=== PATIENT | female | born 1950 | race Caucasian/White ===

== ENCOUNTER 2017-01-22 14:04 | Inpatient (IN) | payer OTHER ==
--- NOTE | 2017-01-22 15:14 | RAD ---
Examination: Chest, PA and lateral views History: Wheezing, SOB Comparison reference: None Findings: The heart is normal in size, the aorta mildly dilated. There is a diffuse interstitial prom inence throughout each lung. No consolidation or pleural fluid is seen. Impression: Bilateral interstitial prominence as described may represent chronic peribronchial thicke gilbert. The findings may also be more acute, related to congestion or inflammation. Clinical correlatio n and follow-up would be helpful to distinguish. Reported By:
[2017-01-22] MEDS ORDERED: TUSSIONEX PENNKINETIC SUSP PO PRN (18:01)
[2017-01-22] MEDS ORDERED: NS 1/2 1000 ML IV 1,000 ML IV ONE (18:08)
[2017-01-22] MEDS ORDERED: TYLENOL 500 MG TAB EXTRA STRENGTH PO PRN (18:10)
[2017-01-22] MEDS ORDERED: SALINE 3% 15 ML NEB TX ONE (18:25)
[2017-01-22] MEDS ORDERED: DUONEB 0.5 MG/3 MG ONE (18:25)
[2017-01-22] MEDS: DUONEB 0.5 MG/3 MG NEB SCH ×2 (18:35→21:04)
[2017-01-22] MEDS ORDERED: SALINE 3% 15 ML NEB TX NEB ONE (18:35)
[2017-01-22 18:43] LABS: BASOPHILS % (AUTO) 0.3 % (0.2-1.0); EOSINOPHILS # (AUTO) 0.1 x10^3/uL (0.0-0.2); EOSINOPHILS % (AUTO) 0.3 % (0.9-2.9); HEMOGLOBIN 14.3 g/dL (12.0-16.0); LYMPHOCYTES % (AUTO) 5.5 % (21.0-51.0); MEAN CORPUSCULAR VOLUME 85.6 fL (80.0-100.0); MONOCYTES # (AUTO) 0.6 x10^3/uL (0.3-0.8); MONOCYTES % (AUTO) 3.2 % (0.0-13.0); NEUTROPHILS # (AUTO) 16.3 x10^3/uL (2.2-4.8); NEUTROPHILS % (AUTO) 90.7 % (42.0-75.0); PLATELET COUNT 340 X10^3/uL (150.0-450.0); RED BLOOD COUNT 4.78 X10^6/uL (3.5-5.4); RED CELL DISTRIBUTION WIDTH 14.7 % (11.6-16.5); WHITE BLOOD COUNT 17.9 X10^3/uL (3.6-10.0)
[2017-01-22] MEDS: ZITHROMAX INJ 500 MG VIAL 500 MG in D5W 250 ML IV 250 ML IV SCH (18:50)
[2017-01-22 18:52] LABS: ALANINE AMINOTRANSFERASE 27 Units/L (12-78); ALBUMIN 3.3 g/dL (3.4-5.0); ALKALINE PHOSPHATASE 78 Units/L (46-116); ASPARTATE AMINO TRANSFERASE 19 Units/L (15-37); BLOOD UREA NITROGEN 17 mg/dL (7-18); CALCIUM 8.6 mg/dL (8.5-10.1); CARBON DIOXIDE 25.8 mmol/L (21-32); CHLORIDE 99 mmol/L (98-107); COR CA(FOR HYPOALB) 9.2 mg/dL (8.5-10.1); COR NA(FOR HYPERGLY) 137 mmol/L (136-145); CREATININE 0.86 mg/dL (0.55-1.02); SODIUM 136 mmol/L (136-145); TOTAL PROTEIN 6.8 g/dL (6.4-8.2); eGFR BLACK RACES > 60 (>60); eGFR NON BLACK RACES > 60 (>60)
[2017-01-22 18:56] LABS: BAND NEUTROPHILS % 5 % (0-10); PLATELET MORPHOLOGY COMMENT NORMAL (NORMAL)
[2017-01-22] MEDS: NS 1/2 1000 ML IV 1,000 ML IV SCH (19:12)
[2017-01-22] MEDS ORDERED: K-RIDER 10 MEQ/NS 100 ML 10 MEQ/100 ML BAG IV PRN (19:13)
[2017-01-22] MEDS ORDERED: MAGNESIUM SULFATE 1 GM/100 mL PREMIX 1 GM/100 ML BAG IV PRN (19:13)
[2017-01-22] MEDS ORDERED: POTASSIUM CHLORIDE LIQ 20 MEQ UDC PO PRN (19:13)
[2017-01-22] MEDS ORDERED: MAG-OX TAB PO PRN (19:13)
[2017-01-22] MEDS: ROBITUSSIN DM PO SCH (20:20)
[2017-01-22] MEDS: MAXIPIME 1 GM IV PREMIX 1 GM/50 ML BAG IV SCH (20:20)
[2017-01-22] MEDS: POTASSIUM CHL 60 MEQ/NS 0.45% 500 ML IV PRN (20:21)
[2017-01-22 20:54] LABS: BILIRUBIN,URINE NEGATIVE (NEGATIVE); BLOOD/HEMOGLOBIN,URINE NEGATIVE (NEGATIVE); GLUCOSE, URINE NEGATIVE (NEGATIVE); KETONES,URINE NEGATIVE (NEGATIVE); LEUKOCYTE ESTERASE ,URINE 1+ (NEGATIVE); NITRITES,URINE NEGATIVE (NEGATIVE); PROTEIN,URINE NEGATIVE (NEGATIVE); UROBILINOGEN,URINE NORMAL (NORMAL)
[2017-01-22] MEDS ORDERED: MAXIPIME VIAL 1 GM IV SCH (21:00)
[2017-01-22 21:03] LABS: APPEARANCE,URINE CLEAR (CLEAR); BACTERIA,URINE TRACE /HPF (NEGATIVE); COLOR,URINE YELLOW (YELLOW); RBC,URINE 0-3 /HPF (NEGATIVE); SQUAMOUS EPITHELIAL CELL,UR RARE /HPF (NEGATIVE)
[2017-01-23] MEDS: DUONEB 0.5 MG/3 MG NEB SCH ×3 (00:25→09:53)
[2017-01-23 05:30] LABS: BASOPHILS # (AUTO) 0.1 X10^3/uL (0.0-0.1); BASOPHILS % (AUTO) 0.7 % (0.2-1.0); HEMATOCRIT 36.9 % (36.0-47.0); HEMOGLOBIN 12.8 g/dL (12.0-16.0); LYMPHOCYTES # (AUTO) 0.9 X10^3/uL (1.3-2.9); LYMPHOCYTES % (AUTO) 6.8 % (21.0-51.0); MEAN CORPUSCULAR HEMOGLOBIN 29.7 pg (27.0-34.0); MEAN CORPUSCULAR HGB CONC 34.8 g/dL (33.0-35.0); MEAN CORPUSCULAR VOLUME 85.5 fL (80.0-100.0); MEAN PLATELET VOLUME 8.5 fL (7.4-11.0); MONOCYTES # (AUTO) 0.8 x10^3/uL (0.3-0.8); NEUTROPHILS # (AUTO) 11.5 x10^3/uL (2.2-4.8); NEUTROPHILS % (AUTO) 86.5 % (42.0-75.0); PLATELET COUNT 311 X10^3/uL (150.0-450.0); RED BLOOD COUNT 4.32 X10^6/uL (3.5-5.4); RED CELL DISTRIBUTION WIDTH 14.6 % (11.6-16.5); WHITE BLOOD COUNT 13.3 X10^3/uL (3.6-10.0)
[2017-01-23 05:58] LABS: ALANINE AMINOTRANSFERASE 26 Units/L (12-78); ALBUMIN 2.8 g/dL (3.4-5.0); ALKALINE PHOSPHATASE 69 Units/L (46-116); ASPARTATE AMINO TRANSFERASE 17 Units/L (15-37); BLOOD UREA NITROGEN 12 mg/dL (7-18); CALCIUM 7.8 mg/dL (8.5-10.1); CARBON DIOXIDE 24.3 mmol/L (21-32); CHLORIDE 103 mmol/L (98-107); COR CA(FOR HYPOALB) 8.8 mg/dL (8.5-10.1); COR NA(FOR HYPERGLY) 141 mmol/L (136-145); CREATININE 0.85 mg/dL (0.55-1.02); SODIUM 139 mmol/L (136-145); eGFR BLACK RACES > 60 (>60); eGFR NON BLACK RACES > 60 (>60)
--- NOTE | 2017-01-23 06:44 | RAD ---
History: Shortness of breath Study: Portable AP trans Comparison: Yesterday Findings: There is limited inspiration compared to yesterday's exam. There is chronic mild interstiti al lung disease. The heart size is normal. There is no pleural effusion. Impression: Limited inspiration and unchanged mild chronic interstitial lung disease Reported By:
[2017-01-23] MEDS: ROBITUSSIN DM PO SCH ×4 (08:35→22:40)
[2017-01-23] MEDS: MAXIPIME 1 GM IV PREMIX 1 GM/50 ML BAG IV SCH ×2 (08:35→22:40)
[2017-01-23] MEDS: ZITHROMAX INJ 500 MG VIAL 500 MG in D5W 250 ML IV 250 ML IV SCH (08:35)
[2017-01-23] MEDS ORDERED: XOPENEX 1.25 MG/3 ML NEBULE NEB ONE (09:25)
[2017-01-23] MEDS: XOPENEX 1.25 MG/3 ML NEBULE NEB SCH ×3 (09:53→21:30)
--- NOTE | 2017-01-23 10:16 | CT ---
History: Cough and shortness of breath Study: CTA chest with 100 mL Omnipaque 350. Sagittal and coronal MIPS of the pulmonary arteries were displayed. Findings: The left lobe of the thyroid gland is enlarged and extends into the anterior superior media stinum with coarse calcification and hypo attenuating nodules. There are diffusely increased interstitial lung markings peripherally. There is no focal lung consoli dation and there is no pleural effusion and there is no pulmonary mass. The visualized upper abdomen is unremarkable. The main pulmonary artery measures 3.55 cm diameter. The right main pulmonary artery is also dilated. The aorta is unremarkable. No pulmonary embolus is demonstrated. Impression: 1. No evidence for pulmonary embolus 2. Left thyroid goiter 3. Peripheral interstitial lung disease status likely chronic, no definite acute cardiopulmonary dise ase. Reported By:
[2017-01-23] MEDS: DIFLUCAN 200 MG IV PREMIX* 200 MG/100 ML BAG IV SCH (14:32)
[2017-01-23] MEDS ORDERED: NS 1/2 1000 ML IV 1,000 ML IV ONE (17:31)
[2017-01-23] MEDS: NS 1/2 1000 ML IV 1,000 ML IV SCH (17:34)
[2017-01-23] MEDS: ELIQUIS PO SCH (22:41)
[2017-01-23] MEDS: PATIENT'S HOME MEDICATION PO SCH (22:41)
[2017-01-24] MEDS: XOPENEX 1.25 MG/3 ML NEBULE NEB SCH ×3 (05:11→20:28)
[2017-01-24] MEDS ORDERED: NS 1/2 1000 ML IV 1,000 ML IV ONE (06:25)
[2017-01-24 06:29] LABS: BASOPHILS # (AUTO) 0.1 X10^3/uL (0.0-0.1); BASOPHILS % (AUTO) 0.8 % (0.2-1.0); EOSINOPHILS # (AUTO) 0.1 x10^3/uL (0.0-0.2); EOSINOPHILS % (AUTO) 0.6 % (0.9-2.9); HEMATOCRIT 36.6 % (36.0-47.0); HEMOGLOBIN 12.6 g/dL (12.0-16.0); LYMPHOCYTES # (AUTO) 2.3 X10^3/uL (1.3-2.9); LYMPHOCYTES % (AUTO) 21.9 % (21.0-51.0); MEAN CORPUSCULAR HEMOGLOBIN 29.8 pg (27.0-34.0); MEAN CORPUSCULAR HGB CONC 34.6 g/dL (33.0-35.0); MEAN CORPUSCULAR VOLUME 86.2 fL (80.0-100.0); MEAN PLATELET VOLUME 8.8 fL (7.4-11.0); MONOCYTES # (AUTO) 1.1 x10^3/uL (0.3-0.8); MONOCYTES % (AUTO) 10.4 % (0.0-13.0); NEUTROPHILS % (AUTO) 66.3 % (42.0-75.0); PLATELET COUNT 292 X10^3/uL (150.0-450.0); RED BLOOD COUNT 4.24 X10^6/uL (3.5-5.4); RED CELL DISTRIBUTION WIDTH 14.6 % (11.6-16.5); WHITE BLOOD COUNT 10.5 X10^3/uL (3.6-10.0)
[2017-01-24] MEDS: NS 1/2 1000 ML IV 1,000 ML IV SCH (06:31)
[2017-01-24 06:48] LABS: ALANINE AMINOTRANSFERASE 29 Units/L (12-78); ALBUMIN 2.7 g/dL (3.4-5.0); ALKALINE PHOSPHATASE 69 Units/L (46-116); ASPARTATE AMINO TRANSFERASE 18 Units/L (15-37); BLOOD UREA NITROGEN 10 mg/dL (7-18); CALCIUM 7.7 mg/dL (8.5-10.1); CARBON DIOXIDE 28.5 mmol/L (21-32); CHLORIDE 105 mmol/L (98-107); COR CA(FOR HYPOALB) 8.7 mg/dL (8.5-10.1); CREATININE 0.77 mg/dL (0.55-1.02); SODIUM 142 mmol/L (136-145); TOTAL PROTEIN 5.7 g/dL (6.4-8.2); eGFR BLACK RACES > 60 (>60); eGFR NON BLACK RACES > 60 (>60)
[2017-01-24] MEDS: MAXIPIME 1 GM IV PREMIX 1 GM/50 ML BAG IV SCH ×2 (08:39→21:54)
[2017-01-24] MEDS: ZITHROMAX INJ 500 MG VIAL 500 MG in D5W 250 ML IV 250 ML IV SCH (08:39)
[2017-01-24] MEDS: CHLORTHALIDONE PO SCH (08:39)
[2017-01-24] MEDS: DIFLUCAN 200 MG IV PREMIX* 200 MG/100 ML BAG IV SCH (08:39)
[2017-01-24] MEDS: ELIQUIS PO SCH ×2 (08:39→21:55)
[2017-01-24] MEDS: ROBITUSSIN DM PO SCH ×4 (08:40→21:55)
[2017-01-24] MEDS: PATIENT'S HOME MEDICATION PO SCH ×2 (08:41→21:58)
[2017-01-24] MEDS ORDERED: ELIQUIS PO SCH (09:00)
[2017-01-24] MEDS ORDERED: PROPAFENONE HCL PO SCH (09:00)
[2017-01-24] MEDS ORDERED: CHLORTHALIDONE PO SCH (09:00)
[2017-01-24] MEDS: POTASSIUM CHL 60 MEQ/NS 0.45% 500 ML IV PRN (10:28)
[2017-01-24] MEDS: PHENERGAN TAB 25 MG PO SCH ×2 (16:35→21:54)
[2017-01-24 22:38] VITALS: BMI 29.9
[2017-01-25] MEDS ORDERED: NS 1/2 1000 ML IV 1,000 ML IV ONE (01:49)
[2017-01-25] MEDS: NS 1/2 1000 ML IV 1,000 ML IV SCH (02:17)
[2017-01-25] MEDS: XOPENEX 1.25 MG/3 ML NEBULE NEB SCH ×4 (04:54→20:33)
[2017-01-25 05:40] LABS: BASOPHILS # (AUTO) 0.1 X10^3/uL (0.0-0.1); BASOPHILS % (AUTO) 0.8 % (0.2-1.0); EOSINOPHILS # (AUTO) 0.2 x10^3/uL (0.0-0.2); EOSINOPHILS % (AUTO) 2.1 % (0.9-2.9); HEMATOCRIT 36.7 % (36.0-47.0); HEMOGLOBIN 12.7 g/dL (12.0-16.0); LYMPHOCYTES # (AUTO) 2.6 X10^3/uL (1.3-2.9); LYMPHOCYTES % (AUTO) 25.9 % (21.0-51.0); MEAN CORPUSCULAR HEMOGLOBIN 30.1 pg (27.0-34.0); MEAN CORPUSCULAR HGB CONC 34.7 g/dL (33.0-35.0); MEAN CORPUSCULAR VOLUME 86.8 fL (80.0-100.0); MEAN PLATELET VOLUME 8.7 fL (7.4-11.0); MONOCYTES # (AUTO) 1.3 x10^3/uL (0.3-0.8); MONOCYTES % (AUTO) 12.4 % (0.0-13.0); NEUTROPHILS # (AUTO) 5.9 x10^3/uL (2.2-4.8); NEUTROPHILS % (AUTO) 58.8 % (42.0-75.0); PLATELET COUNT 293 X10^3/uL (150.0-450.0); RED BLOOD COUNT 4.23 X10^6/uL (3.5-5.4); RED CELL DISTRIBUTION WIDTH 14.8 % (11.6-16.5); WHITE BLOOD COUNT 10.1 X10^3/uL (3.6-10.0)
[2017-01-25 06:50] LABS: ALANINE AMINOTRANSFERASE 38 Units/L (12-78); ALBUMIN 2.7 g/dL (3.4-5.0); ALKALINE PHOSPHATASE 65 Units/L (46-116); ASPARTATE AMINO TRANSFERASE 20 Units/L (15-37); BLOOD UREA NITROGEN 11 mg/dL (7-18); CALCIUM 7.7 mg/dL (8.5-10.1); CARBON DIOXIDE 27.9 mmol/L (21-32); CHLORIDE 105 mmol/L (98-107); COR CA(FOR HYPOALB) 8.7 mg/dL (8.5-10.1); CREATININE 0.74 mg/dL (0.55-1.02); SODIUM 141 mmol/L (136-145); TOTAL PROTEIN 5.6 g/dL (6.4-8.2); eGFR BLACK RACES > 60 (>60); eGFR NON BLACK RACES > 60 (>60)
[2017-01-25] MEDS: K-LYTE EFFERVESCENT PO PRN ×2 (08:13→08:14)
[2017-01-25] MEDS: MAXIPIME 1 GM IV PREMIX 1 GM/50 ML BAG IV SCH ×2 (08:35→21:47)
[2017-01-25] MEDS: DIFLUCAN 200 MG IV PREMIX* 200 MG/100 ML BAG IV SCH (08:35)
[2017-01-25] MEDS: CHLORTHALIDONE PO SCH (08:35)
[2017-01-25] MEDS: ELIQUIS PO SCH ×2 (08:35→21:49)
[2017-01-25] MEDS: ZITHROMAX INJ 500 MG VIAL 500 MG in D5W 250 ML IV 250 ML IV SCH (08:36)
[2017-01-25] MEDS: ROBITUSSIN DM PO SCH ×4 (08:36→21:49)
[2017-01-25] MEDS: PHENERGAN TAB 25 MG PO SCH ×4 (08:36→21:48)
[2017-01-25] MEDS: PATIENT'S HOME MEDICATION PO SCH ×2 (08:36→21:48)
[2017-01-25] MEDS: SOLU-Medrol 40 MG VIAL IVP SCH (16:56)
[2017-01-26] MEDS: SOLU-Medrol 40 MG VIAL IVP SCH ×4 (00:06→21:55)
[2017-01-26] MEDS ORDERED: NS 1/2 1000 ML IV 1,000 ML IV ONE (00:10)
[2017-01-26] MEDS: NS 1/2 1000 ML IV 1,000 ML IV SCH ×2 (00:20→21:59)
[2017-01-26 04:55] LABS: BASOPHILS # (AUTO) 0.1 X10^3/uL (0.0-0.1); BASOPHILS % (AUTO) 0.6 % (0.2-1.0); EOSINOPHILS % (AUTO) 0.1 % (0.9-2.9); HEMATOCRIT 39.5 % (36.0-47.0); HEMOGLOBIN 13.8 g/dL (12.0-16.0); LYMPHOCYTES # (AUTO) 0.9 X10^3/uL (1.3-2.9); LYMPHOCYTES % (AUTO) 8.5 % (21.0-51.0); MEAN CORPUSCULAR HEMOGLOBIN 30.2 pg (27.0-34.0); MEAN CORPUSCULAR HGB CONC 34.9 g/dL (33.0-35.0); MEAN CORPUSCULAR VOLUME 86.5 fL (80.0-100.0); MEAN PLATELET VOLUME 8.4 fL (7.4-11.0); MONOCYTES # (AUTO) 0.4 x10^3/uL (0.3-0.8); MONOCYTES % (AUTO) 4.4 % (0.0-13.0); NEUTROPHILS # (AUTO) 8.8 x10^3/uL (2.2-4.8); NEUTROPHILS % (AUTO) 86.4 % (42.0-75.0); PLATELET COUNT 339 X10^3/uL (150.0-450.0); RED BLOOD COUNT 4.57 X10^6/uL (3.5-5.4); RED CELL DISTRIBUTION WIDTH 14.6 % (11.6-16.5); WHITE BLOOD COUNT 10.1 X10^3/uL (3.6-10.0)
[2017-01-26] MEDS: XOPENEX 1.25 MG/3 ML NEBULE NEB SCH ×3 (05:22→20:06)
[2017-01-26 06:35] LABS: ALANINE AMINOTRANSFERASE 34 Units/L (12-78); ALBUMIN 2.9 g/dL (3.4-5.0); ALKALINE PHOSPHATASE 73 Units/L (46-116); ASPARTATE AMINO TRANSFERASE 18 Units/L (15-37); BLOOD UREA NITROGEN 15 mg/dL (7-18); CALCIUM 8.4 mg/dL (8.5-10.1); CARBON DIOXIDE 27.1 mmol/L (21-32); CHLORIDE 104 mmol/L (98-107); COR CA(FOR HYPOALB) 9.3 mg/dL (8.5-10.1); COR NA(FOR HYPERGLY) 139 mmol/L (136-145); CREATININE 0.81 mg/dL (0.55-1.02); SODIUM 138 mmol/L (136-145); TOTAL PROTEIN 6.4 g/dL (6.4-8.2); eGFR BLACK RACES > 60 (>60); eGFR NON BLACK RACES > 60 (>60)
--- NOTE | 2017-01-26 07:45 | RAD ---
Examination: Chest, PA and lateral views History: Cough and SOB Comparison reference 01/23/2017 Findings: Continued normal heart size with dilated aorta. Central vascular congestion and diffuse int erstitial prominence bilaterally. Improved aeration of the lungs since prior study. Impression: Improved pulmonary volumes with persistent vascular congestion. Bilateral interstitial pr ocess may be at least in part chronic. Reported By:
[2017-01-26] MEDS: CHLORTHALIDONE PO SCH (09:16)
[2017-01-26] MEDS: ROBITUSSIN DM PO SCH ×4 (09:16→21:55)
[2017-01-26] MEDS: MAXIPIME 1 GM IV PREMIX 1 GM/50 ML BAG IV SCH ×2 (09:16→21:59)
[2017-01-26] MEDS: ZITHROMAX INJ 500 MG VIAL 500 MG in D5W 250 ML IV 250 ML IV SCH (09:16)
[2017-01-26] MEDS: PHENERGAN TAB 25 MG PO SCH ×4 (09:16→21:55)
[2017-01-26] MEDS: ELIQUIS PO SCH ×2 (09:23→21:55)
[2017-01-26] MEDS: PATIENT'S HOME MEDICATION PO SCH ×2 (09:23→21:55)
[2017-01-26] MEDS: MUCOMYST 20% 200 MG/ML NEB SCH ×2 (13:25→20:08)
[2017-01-26] MEDS: K-DUR TAB 20 MEQ PO SCH ×2 (15:57→21:55)
[2017-01-26] MEDS: LASIX IVP SCH ×2 (15:57→21:55)
[2017-01-26] MEDS: PULMICORT NEB TX 0.5 MG NEB SCH ×2 (18:24→20:07)
[2017-01-27] MEDS: XOPENEX 1.25 MG/3 ML NEBULE NEB SCH ×3 (05:10→20:31)
[2017-01-27] MEDS: MUCOMYST 20% 200 MG/ML NEB SCH ×3 (05:11→20:31)
[2017-01-27] MEDS: SOLU-Medrol 40 MG VIAL IVP SCH ×3 (05:39→21:33)
[2017-01-27 05:46] LABS: ALANINE AMINOTRANSFERASE 38 Units/L (12-78); ALBUMIN 3.1 g/dL (3.4-5.0); ALKALINE PHOSPHATASE 75 Units/L (46-116); ASPARTATE AMINO TRANSFERASE 16 Units/L (15-37); BLOOD UREA NITROGEN 25 mg/dL (7-18); CALCIUM 8.5 mg/dL (8.5-10.1); CARBON DIOXIDE 28.2 mmol/L (21-32); CHLORIDE 99 mmol/L (98-107); COR CA(FOR HYPOALB) 9.2 mg/dL (8.5-10.1); COR NA(FOR HYPERGLY) 139 mmol/L (136-145); CREATININE 1.05 mg/dL (0.55-1.02); SODIUM 137 mmol/L (136-145); TOTAL PROTEIN 6.7 g/dL (6.4-8.2); eGFR BLACK RACES > 60 (>60); eGFR NON BLACK RACES 55 (>60)
[2017-01-27 05:49] LABS: BASOPHILS # (AUTO) 0.1 X10^3/uL (0.0-0.1); BASOPHILS % (AUTO) 0.4 % (0.2-1.0); HEMATOCRIT 39.9 % (36.0-47.0); LYMPHOCYTES # (AUTO) 1.1 X10^3/uL (1.3-2.9); LYMPHOCYTES % (AUTO) 5.8 % (21.0-51.0); MEAN CORPUSCULAR HEMOGLOBIN 30.2 pg (27.0-34.0); MEAN CORPUSCULAR HGB CONC 35.1 g/dL (33.0-35.0); MEAN CORPUSCULAR VOLUME 85.9 fL (80.0-100.0); MEAN PLATELET VOLUME 8.8 fL (7.4-11.0); MONOCYTES # (AUTO) 0.8 x10^3/uL (0.3-0.8); MONOCYTES % (AUTO) 4.5 % (0.0-13.0); NEUTROPHILS # (AUTO) 16.7 x10^3/uL (2.2-4.8); NEUTROPHILS % (AUTO) 89.3 % (42.0-75.0); PLATELET COUNT 368 X10^3/uL (150.0-450.0); RED BLOOD COUNT 4.64 X10^6/uL (3.5-5.4); RED CELL DISTRIBUTION WIDTH 14.6 % (11.6-16.5)
[2017-01-27 06:34] LABS: WHITE BLOOD COUNT 18.7 X10^3/uL (3.6-10.0)
[2017-01-27] MEDS: PULMICORT NEB TX 0.5 MG NEB SCH ×2 (08:16→20:30)
[2017-01-27] MEDS: MAXIPIME 1 GM IV PREMIX 1 GM/50 ML BAG IV SCH ×2 (09:00→21:33)
[2017-01-27] MEDS: CHLORTHALIDONE PO SCH (09:00)
[2017-01-27] MEDS: ROBITUSSIN DM PO SCH ×4 (09:00→21:33)
[2017-01-27] MEDS: ELIQUIS PO SCH ×2 (09:00→21:31)
[2017-01-27] MEDS: PHENERGAN TAB 25 MG PO SCH ×4 (09:00→21:31)
[2017-01-27] MEDS: PATIENT'S HOME MEDICATION PO SCH ×2 (09:04→21:32)
[2017-01-27] MEDS: POTASSIUM CHL 40 MEQ/NS 0.45% 500 ML IV PRN (11:15)
[2017-01-27] MEDS ORDERED: MOTRIN TAB 800 MG PO ONE (13:49)
[2017-01-27] MEDS ORDERED: NS 1/2 1000 ML IV 1,000 ML IV ONE (14:15)
[2017-01-27 14:42] LABS: ABG BASE EXCESS 3.9 mmol/L (-2.0-2.0); ABG HCO3 27.7 mmol/L (22-26)
[2017-01-27 14:44] LABS: ABG ALLEN TEST POS
[2017-01-27] MEDS: ZITHROMAX INJ 500 MG VIAL 500 MG in D5W 250 ML IV 250 ML IV SCH (14:44)
[2017-01-27] MEDS: NS 1/2 1000 ML IV 1,000 ML IV SCH (14:44)
[2017-01-28] MEDS: NS 1/2 1000 ML IV 1,000 ML IV SCH (02:00)
[2017-01-28] MEDS: XOPENEX 1.25 MG/3 ML NEBULE NEB SCH ×4 (04:36→20:34)
[2017-01-28] MEDS: MUCOMYST 20% 200 MG/ML NEB SCH ×4 (04:36→20:35)
[2017-01-28 05:27] LABS: ALANINE AMINOTRANSFERASE 33 Units/L (12-78); ALBUMIN 2.7 g/dL (3.4-5.0); ALKALINE PHOSPHATASE 71 Units/L (46-116); ASPARTATE AMINO TRANSFERASE 14 Units/L (15-37); BLOOD UREA NITROGEN 22 mg/dL (7-18); CALCIUM 8.1 mg/dL (8.5-10.1); CARBON DIOXIDE 30.5 mmol/L (21-32); CHLORIDE 101 mmol/L (98-107); COR CA(FOR HYPOALB) 9.1 mg/dL (8.5-10.1); COR NA(FOR HYPERGLY) 139 mmol/L (136-145); CREATININE 1.01 mg/dL (0.55-1.02); SODIUM 138 mmol/L (136-145); TOTAL PROTEIN 5.9 g/dL (6.4-8.2); eGFR BLACK RACES > 60 (>60); eGFR NON BLACK RACES 58 (>60)
[2017-01-28] MEDS: SOLU-Medrol 40 MG VIAL IVP SCH ×2 (05:27→13:48)
[2017-01-28 05:45] LABS: BASOPHILS % (AUTO) 0.2 % (0.2-1.0); HEMOGLOBIN 13.2 g/dL (12.0-16.0); LYMPHOCYTES % (AUTO) 5.2 % (21.0-51.0); MEAN CORPUSCULAR HGB CONC 34.7 g/dL (33.0-35.0); MEAN CORPUSCULAR VOLUME 86.4 fL (80.0-100.0); MEAN PLATELET VOLUME 8.7 fL (7.4-11.0); MONOCYTES # (AUTO) 1.1 x10^3/uL (0.3-0.8); NEUTROPHILS # (AUTO) 16.8 x10^3/uL (2.2-4.8); NEUTROPHILS % (AUTO) 88.6 % (42.0-75.0); PLATELET COUNT 367 X10^3/uL (150.0-450.0); RED BLOOD COUNT 4.39 X10^6/uL (3.5-5.4); RED CELL DISTRIBUTION WIDTH 14.5 % (11.6-16.5)
--- NOTE | 2017-01-28 07:01 | RAD ---
HISTORY: Shortness of breath Study: Chest PA and lateral Comparison: 01/26/2017 Findings: The heart is within normal limits in size. No definite congestive heart failure is noted. No acute al veolar infiltrates are identified. Interstitial lung changes are present bilaterally unchanged from p rior examinations. No pleural effusions are identified. The bony thorax is unremarkable. IMPRESSION: No definite acute alveolar infiltrates or congestive heart failure on today's examination Mild chronic interstitial lung changes Reported By:
[2017-01-28] MEDS: PATIENT'S HOME MEDICATION PO SCH ×2 (09:07→21:01)
[2017-01-28] MEDS: ZITHROMAX INJ 500 MG VIAL 500 MG in D5W 250 ML IV 250 ML IV SCH (09:08)
[2017-01-28] MEDS: ROBITUSSIN DM PO SCH ×4 (09:08→21:01)
[2017-01-28] MEDS: PHENERGAN TAB 25 MG PO SCH ×4 (09:08→21:01)
[2017-01-28] MEDS: CHLORTHALIDONE PO SCH (09:09)
[2017-01-28] MEDS: MAXIPIME 1 GM IV PREMIX 1 GM/50 ML BAG IV SCH ×2 (09:09→20:56)
[2017-01-28] MEDS: ELIQUIS PO SCH ×2 (09:17→21:00)
[2017-01-28] MEDS: PULMICORT NEB TX 0.5 MG NEB SCH ×2 (09:19→20:35)
[2017-01-29 04:40] LABS: BASOPHILS # (AUTO) 0.2 X10^3/uL (0.0-0.1); EOSINOPHILS % (AUTO) 0.1 % (0.9-2.9); HEMATOCRIT 36.3 % (36.0-47.0); HEMOGLOBIN 12.5 g/dL (12.0-16.0); LYMPHOCYTES # (AUTO) 1.8 X10^3/uL (1.3-2.9); LYMPHOCYTES % (AUTO) 12.1 % (21.0-51.0); MEAN CORPUSCULAR HEMOGLOBIN 29.7 pg (27.0-34.0); MEAN CORPUSCULAR HGB CONC 34.6 g/dL (33.0-35.0); MEAN PLATELET VOLUME 8.2 fL (7.4-11.0); MONOCYTES # (AUTO) 1.4 x10^3/uL (0.3-0.8); MONOCYTES % (AUTO) 9.7 % (0.0-13.0); NEUTROPHILS # (AUTO) 11.5 x10^3/uL (2.2-4.8); NEUTROPHILS % (AUTO) 77.1 % (42.0-75.0); PLATELET COUNT 314 X10^3/uL (150.0-450.0); RED BLOOD COUNT 4.22 X10^6/uL (3.5-5.4); RED CELL DISTRIBUTION WIDTH 14.8 % (11.6-16.5); WHITE BLOOD COUNT 14.9 X10^3/uL (3.6-10.0)
[2017-01-29] MEDS: XOPENEX 1.25 MG/3 ML NEBULE NEB SCH ×2 (04:49→13:44)
[2017-01-29] MEDS: MUCOMYST 20% 200 MG/ML NEB SCH (04:49)
[2017-01-29 04:51] LABS: ALANINE AMINOTRANSFERASE 35 Units/L (12-78); ALBUMIN 2.4 g/dL (3.4-5.0); ALKALINE PHOSPHATASE 58 Units/L (46-116); ASPARTATE AMINO TRANSFERASE 15 Units/L (15-37); BLOOD UREA NITROGEN 20 mg/dL (7-18); CALCIUM 7.8 mg/dL (8.5-10.1); CARBON DIOXIDE 30.2 mmol/L (21-32); CHLORIDE 103 mmol/L (98-107); COR CA(FOR HYPOALB) 9.1 mg/dL (8.5-10.1); CREATININE 0.94 mg/dL (0.55-1.02); SODIUM 139 mmol/L (136-145); TOTAL PROTEIN 5.2 g/dL (6.4-8.2); eGFR BLACK RACES > 60 (>60); eGFR NON BLACK RACES > 60 (>60)
[2017-01-29] MEDS: POTASSIUM CHL 40 MEQ/NS 0.45% 500 ML IV PRN (06:13)
[2017-01-29] MEDS: NS 1/2 1000 ML IV 1,000 ML IV SCH (06:35)
[2017-01-29] MEDS: PULMICORT NEB TX 0.5 MG NEB SCH (08:44)
[2017-01-29] MEDS: PATIENT'S HOME MEDICATION PO SCH (09:44)
[2017-01-29] MEDS: CHLORTHALIDONE PO SCH (09:44)
[2017-01-29] MEDS: ELIQUIS PO SCH (09:44)
[2017-01-29] MEDS: PHENERGAN TAB 25 MG PO SCH ×2 (09:44→13:31)
[2017-01-29] MEDS: ROBITUSSIN DM PO SCH ×2 (09:44→13:33)
[2017-01-29] MEDS: MAXIPIME 1 GM IV PREMIX 1 GM/50 ML BAG IV SCH (09:44)
[2017-01-29] MEDS: ZITHROMAX INJ 500 MG VIAL 500 MG in D5W 250 ML IV 250 ML IV SCH (12:04)
--- NOTE | 2017-01-29 15:44 | DR.H&P ---
H&P - History & Physical for Day of: H&P Date: 01/22/17 - Chief Complaint Chief Complaint: CCC, FEVER, WHEEZING, SOB - Allergies Allergies/Adverse Reactions: Allergies Allergy/AdvReac Type Severity Reaction Status Date / Time codeine Allergy Verified 01/22/17 18:33 lisinopril AdvReac Verified 01/22/17 18:34 - History of Present Illness History of Present Illness: patient is a 66-year-old white female who was an admission after failing to improve with outpatient therapy for acute bronchitis. Patient states she had antibiotic injections as well as steroids and by mouth antibiotics prior to admission without improvement. Plan to admit patient for further evaluation of shortness of breath and respiratory illness. We'll obtain blood cultures and sputum cultures, administer IV antibiotics and respiratory therapy, resume patient's home medication - Past Medical History Past Medical History: CHF, Hypertension Additional Medical History: A FIB, FOLLOWED BY [facility] FOR ECHO - Past Surgical History Surgical History: Hysterectomy, Ortho Surgery - Family History Family Medical History: Cancer - Social History Does patient currently use any type of tobacco product: No Have you used tobacco products in the last 12 months: No Type of Tobacco Use: None Alcohol Use: None Drug Use: None - Review of Systems Constitutional: Fever, Chills, Weakness, Malaise Eyes: No Symptoms Reported ENT: No Symptoms Reported Respiratory: Cough, Shortness of Breath, Wheezing Cardiovascular: No Symptoms Reported Gastrointestinal: Nausea Genitourinary: No Symptoms Reported Musculoskeletal: No Symptoms Reported Skin: No Symptoms Reported Neurological: No Symptoms Reported - Physical Exam Vital Signs: Temperature 97.6 F Pulse Rate [Left Brachial] 76 Pulse Rate 71 Respiratory Rate 20 Blood Pressure [Right Arm] 157/81 Blood Pressure [Left Arm] 133/70 Blood Pressure 127/72 O2 Sat by Pulse Oximetry 95 Oriented: Normal Eyes: Normal Ear: Normal Nose: Normal Throat: Red, Dry Respiratory: Wheezes Throughout, RLL Diminished, LLL Diminished Cardiovascular: Tachycardia. negative: Edema : Normal Auscultation: Bowel Sounds: Normal Palpation: Normal Tenderness: Normal Skin: Normal Musculoskeletal: Normal Psychiatric: Anxiety Speech Pattern: Clear, Appropriate - Assessment/Plan (1) Bronchopneumonia Status: Acute Plan: admit, IV antibiotics, respiratory therapy, supplemental O2, strict I's and O's, chest x-ray on admission. Blood and sputum cultures. Resume home medications, telemetry (2) CHF (congestive heart failure) Status: Acute (3) A-fib Status: Acute (4) Hypertension Status: Acute (5) SOB (shortness of breath) Status: Acute
[2017-01-29 17:20] VITALS: BP 133/64
== END 2017-01-29 17:00 | disposition home or self-care (01) | DRG 195 ==
LOC: RAD 14:04 → MED/SURG 17:10
PROVIDERS: ADMIT Internal Medicine; ATTEND Internal Medicine
DX: J16.8 Pneumonia due to other specified infectious organisms (principal); R06.02 Shortness of breath; I10 Essential (primary) hypertension; I48.0 Paroxysmal atrial fibrillation; I50.9 Heart failure, unspecified; Z79.01 Long term (current) use of anticoagulants; R00.0 Tachycardia, unspecified; E87.6 Hypokalemia
CPT/HCPCS: 36415; 36600; 71010; 71020; 71275; 80053; 81001; 82803; 83735; 84132; 85025; 87040; 87070; 87086; 87205; 93005; 93010; 94640; 94669; 94760; A4222; Q0169; J0456; J0692; J1450; J1940; J2920; J7608; J7620; J7626

== ENCOUNTER 2022-03-13 12:22 | Inpatient (IN) ==
[2022-03-13] MEDS ORDERED: XOPENEX 1.25 MG/3 ML NEBULE NEB ONE ×3 (13:04→16:17)
[2022-03-13] MEDS ORDERED: TUSSIONEX PENNKINETIC SUSP PO PRN (13:05)
[2022-03-13 13:44] LABS: BASOPHILS # (AUTO) 0.1 X10^3/uL (0.0-0.1); BASOPHILS % (AUTO) 0.7 % (0.2-1.0); EOSINOPHILS % (AUTO) 0.3 % (0.9-2.9); HEMATOCRIT 34.9 % (36.0-47.0); HEMOGLOBIN 12.1 g/dL (12.0-16.0); LYMPHOCYTES # (AUTO) 0.7 X10^3/uL (1.3-2.9); LYMPHOCYTES % (AUTO) 5.9 % (21.0-51.0); MEAN CORPUSCULAR HEMOGLOBIN 31.4 pg (27.0-34.0); MEAN CORPUSCULAR HGB CONC 34.6 g/dL (33.0-35.0); MEAN CORPUSCULAR VOLUME 90.5 fL (80.0-100.0); MEAN PLATELET VOLUME 6.9 fL (7.4-11.0); MONOCYTES % (AUTO) 9.1 % (0.0-13.0); NEUTROPHILS # (AUTO) 9.5 x10^3/uL (2.2-4.8); RED BLOOD COUNT 3.85 X10^6/uL (3.5-5.4); RED CELL DISTRIBUTION WIDTH 14.9 % (11.6-16.5); WHITE BLOOD COUNT 11.4 X10^3/uL (3.6-10.0)
[2022-03-13 13:48] LABS: ABG BASE EXCESS 8.2 mmol/L (-2.0-2.0)
[2022-03-13 13:50] LABS: ABG ALLEN TEST POS; ABG HCO3 31.9 mmol/L (22-26)
[2022-03-13 13:58] LABS: ALANINE AMINOTRANSFERASE 22 Units/L (12-78); ALKALINE PHOSPHATASE 58 Units/L (46-116); ASPARTATE AMINO TRANSFERASE 19 Units/L (15-37); BLOOD UREA NITROGEN 18 mg/dL (7-18); CALCIUM 8.4 mg/dL (8.5-10.1); CARBON DIOXIDE 31.9 mmol/L (21-32); CHLORIDE 96 mmol/L (98-107); COR CA(FOR HYPOALB) 9.2 mg/dL (8.5-10.1); SODIUM 135 mmol/L (136-145); TOTAL PROTEIN 6.5 g/dL (6.4-8.2); eGFR NON BLACK RACES > 60 (>60)
[2022-03-13] MEDS ORDERED: DUONEB 0.5 MG/3 MG (3 mL) NEB SCH (14:00)
[2022-03-13] MEDS: VSL#3 PO SCH (14:15)
[2022-03-13] MEDS ORDERED: NS 1/2 1,000 ML IV 1,000 ML IV ONE (14:17)
[2022-03-13] MEDS: LEVAQUIN PREMIX IV 750 MG 750 MG/150 ML BAG IV SCH (14:20)
[2022-03-13] MEDS: SOLU-Medrol 40 MG VIAL IVP SCH ×2 (14:24→21:13)
[2022-03-13] MEDS: NS 1/2 1,000 ML IV 1,000 ML IV SCH (14:24)
[2022-03-13] MEDS: ROBITUSSIN DM PO SCH ×3 (14:25→21:12)
[2022-03-13] MEDS: PULMICORT NEB TX 0.5 MG NEB SCH ×2 (14:28→21:16)
--- NOTE | 2022-03-13 15:11 | EKG ---
Test Reason : A-FIB Blood Pressure : */* mmHG Vent. Rate : 89 BPM Atrial Rate : 89 BPM P-R Int : 152 ms QRS Dur : 88 ms QT Int : 360 ms P-R-T Axes : 21 -3 0 degrees QTc Int : 438 ms Normal sinus rhythm Minimal voltage criteria for LVH, may be normal variant ( R in aVL ) Cannot rule out Anterior infarct , age undetermined Abnormal ECG No previous ECGs available Confirmed by Dimas Cuadra ([id number]) on 03/15/2022 3:54:06 PM Referred By: Confirmed By: Dimas Cuadra
[2022-03-13 15:26] VITALS: BMI 27.4
[2022-03-13] MEDS: XOPENEX 1.25 MG/3 ML NEBULE NEB SCH (16:20)
--- NOTE | 2022-03-13 22:17 | RAD ---
HISTORYEXAC COPD,BRONCHOPNEUMONIASTUDYCHEST, 1 [id number]/2019FINDINGSThe cardiomediastinal silhouette is stable. Bilateral airspace opacities. No pneumothorax or effusion. The bony thorax appears intact.IMPRESSIONBilateral airspace opacities concerning for pneumonia. Recommend follow-up to resolution.Electronically signed by: MARCE GRAFF (Mar 13, 2022 22:15:43)
[2022-03-14 05:02] LABS: BASOPHILS # (AUTO) 0.1 X10^3/uL (0.0-0.1); BASOPHILS % (AUTO) 1.1 % (0.2-1.0); HEMATOCRIT 32.7 % (36.0-47.0); HEMOGLOBIN 11.8 g/dL (12.0-16.0); LYMPHOCYTES # (AUTO) 0.7 X10^3/uL (1.3-2.9); LYMPHOCYTES % (AUTO) 10.2 % (21.0-51.0); MEAN CORPUSCULAR HEMOGLOBIN 32.4 pg (27.0-34.0); MEAN CORPUSCULAR HGB CONC 36.2 g/dL (33.0-35.0); MEAN CORPUSCULAR VOLUME 89.3 fL (80.0-100.0); MEAN PLATELET VOLUME 7.4 fL (7.4-11.0); MONOCYTES # (AUTO) 0.2 x10^3/uL (0.3-0.8); MONOCYTES % (AUTO) 2.8 % (0.0-13.0); NEUTROPHILS # (AUTO) 5.9 x10^3/uL (2.2-4.8); NEUTROPHILS % (AUTO) 85.9 % (42.0-75.0); RED BLOOD COUNT 3.66 X10^6/uL (3.5-5.4); WHITE BLOOD COUNT 6.9 X10^3/uL (3.6-10.0)
[2022-03-14 05:12] LABS: ALANINE AMINOTRANSFERASE 22 Units/L (12-78); ALBUMIN 2.7 g/dL (3.4-5.0); ALKALINE PHOSPHATASE 55 Units/L (46-116); ASPARTATE AMINO TRANSFERASE 16 Units/L (15-37); BLOOD UREA NITROGEN 14 mg/dL (7-18); CALCIUM 8.2 mg/dL (8.5-10.1); CARBON DIOXIDE 33.2 mmol/L (21-32); CHLORIDE 96 mmol/L (98-107); COR CA(FOR HYPOALB) 9.2 mg/dL (8.5-10.1); COR NA(FOR HYPERGLY) 136 mmol/L (136-145); CREATININE 0.65 mg/dL (0.55-1.02); SODIUM 135 mmol/L (136-145); TOTAL PROTEIN 6.1 g/dL (6.4-8.2); eGFR NON BLACK RACES > 60 (>60)
[2022-03-14] MEDS ORDERED: NS 1/2 1,000 ML IV 1,000 ML IV ONE ×2 (05:12→20:39)
[2022-03-14] MEDS: NS 1/2 1,000 ML IV 1,000 ML IV SCH ×3 (05:15→20:45)
[2022-03-14] MEDS: SOLU-Medrol 40 MG VIAL IVP SCH ×3 (05:16→21:11)
[2022-03-14] MEDS ORDERED: MUCOMYST 20% 200 MG/ML ONE (05:46)
[2022-03-14] MEDS: XOPENEX 1.25 MG/3 ML NEBULE NEB SCH ×4 (06:06→17:01)
[2022-03-14] MEDS: MAGNESIUM SULFATE 1 GRAM/100 mL PREMIX 1 G/100 ML BAG IV PRN ×2 (07:23→10:03)
--- NOTE | 2022-03-14 07:59 | RAD ---
HISTORYCOPD EXAC, SOB, BRONCHOPNEUMONIASTUDYCHEST, 1 [id number]/2023.TECHNIQUEPA or AP view of the chestFINDINGSCardiac and mediastinal contours are within normal limits. Similar appearing bilateral hazy and interstitial pulmonary opacities. There is blunting of the costophrenic sulci. No pneumothorax.IMPRESSIONNo significant change compared to prior radiograph. Similar appearing hazy and interstitial pulmonary opacities that may represent pneumonia. Blunted costophrenic sulci can be seen with small pleural effusions or pleuro-parynchemal scarring.Electronically signed by: Damaso Kilgore (Mar 14, 2022 07:56:46)
[2022-03-14] MEDS ORDERED: LEXAPRO ONE (08:20)
--- NOTE | 2022-03-14 08:22 | CT ---
HISTORYShortness of breath, bronchopneumoniaSTUDYCT chest with contrastTechnique: Axial post-contrast images with coronal and sagittal reformats. Dose reduction procedures were used with mA/kv adjusted for body size.[id number]/2022FINDINGSExamina tion of the mediastinum demonstrated thyromegaly with multiple thyroid nodules present surgical clips are present in the area of the thyroid gland. The appearance of the thyroid gland is unchanged when compared with the prior examination. Continued ultrasound follow-up is recommended. No mediastinal masses, enlarged mediastinal or enlarged hilar adenopathy is identified. No significant aortic abnormality is identified. No pleural effusions are identified. No chest wall or axillary abnormality is identified. Those portions of the upper abdominal organs visualized were within normal limits with the exception of cholelithiasis without evidence for cholecystitis examination of the lung jamil again demonstrated relatively severe diffuse chronic interstitial lung changes to be present not significantly changed in severity or distribution. No significant nodules or masses are identified. Nonspecific ground-glass opacity is present and unchanged. There are no alveolar infiltrates or areas of consolidation present. No peribronchial thickening or bronchiectasis is identified. Dilatation of the main pulmonary arteries suggest possible pulmonary arterial hypertension.IMPRESSIONNo change diffuse severe chronic interstitial lung disease with scattered ground-glass opacitiesNo definite acute pulmonary infiltrates present. No definite nodules identified.Enlarged of the main pulmonary arteries suggestive of possible pulmonary arterial hypertensionCholelithiasis without evidence for cholecystitisEnlarged thyroid gland with multiple nodules stable in appearance when compared to the prior examination. Continued ultrasound monitoring is recommendedElectronically signed by: MARCE GRAFF (Mar 14, 2022 08:21:09)
[2022-03-14] MEDS: LEVAQUIN PREMIX IV 750 MG 750 MG/150 ML BAG IV SCH (08:23)
[2022-03-14] MEDS: FLONASE NASAL SPRAY ENOSTRIL SCH ×3 (08:24→20:48)
[2022-03-14] MEDS: LEXAPRO PO SCH (08:25)
[2022-03-14] MEDS: VSL#3 PO SCH (08:26)
[2022-03-14] MEDS: CHLORTHALIDONE PO SCH (08:26)
[2022-03-14] MEDS: PROTONIX TAB 40 MG PO SCH (08:27)
[2022-03-14] MEDS: ROBITUSSIN DM PO SCH ×4 (08:27→20:46)
[2022-03-14] MEDS: CLARITIN PO SCH (08:27)
[2022-03-14] MEDS: PULMICORT NEB TX 0.5 MG NEB SCH ×2 (08:28→20:10)
[2022-03-14] MEDS ORDERED: MUCOMYST (RESPIRATORY USE ONLY) NEB SCH (09:00)
[2022-03-14] MEDS ORDERED: MAGNESIUM SULFATE 1 GRAM/100 mL PREMIX 1 G/100 ML BAG IV PRN (09:35)
[2022-03-14] MEDS ORDERED: POTASSIUM CHL 60 MEQ/NS 0.45% 500 ML IV PRN (09:35)
[2022-03-14] MEDS ORDERED: POTASSIUM CHL 40 MEQ/NS 0.45% 500 ML IV PRN (09:35)
[2022-03-14] MEDS ORDERED: MICRO K EXTEN CAP 10 MEQ PO PRN (09:35)
[2022-03-14] MEDS ORDERED: KLOR-CON PO PRN (09:35)
[2022-03-14] MEDS ORDERED: POTASSIUM CHLORIDE LIQ 20 MEQ UDC PO PRN (09:35)
[2022-03-14] MEDS ORDERED: K-RIDER 10 MEQ/NS 100 ML 10 MEQ/100 ML BAG IV PRN (09:35)
[2022-03-14] MEDS: PROPAFENONE 325 MG PO SCH ×2 (10:00→20:46)
[2022-03-14] MEDS: [UNRECOGNIZED DRUG - OTHER] PO SCH ×2 (10:00→20:46)
[2022-03-14] MEDS: LOVENOX INJ 40 MG SYR SC SCH (10:00)
[2022-03-14] MEDS: EXEMESTANE 25 MG PO SCH (10:00)
[2022-03-14] MEDS: PATIENT'S HOME MEDICATION (Mycophenolate Mofetil 500 mg tablet) PO SCH ×2 (10:00→20:47)
[2022-03-14] MEDS: K-DUR TAB 20 MEQ PO PRN ×2 (10:05→17:43)
--- NOTE | 2022-03-14 11:26 | DR.H&P ---
H&P - History & Physical for Day of: H&P Date: 03/13/22 - Chief Complaint Chief Complaint: SOB, COUGH, HYPOXIA - History of Present Illness History of Present Illness: IS A 71 YEAR OLD PATIENT OF OURS. SHE PRESENTED TO THE HOSPITAL A DIRECT ADMISSION FOR TREATMENT OF PNEUMONIA, COPD EXACERBATION, AND HYPOXIA. PATIENTS OXYGEN SATURATIONS WERE NOTED TO BE 66% ON ROOM AIR, UPON PRESENTATION TO THE OFFICE. SHE WAS PLACED ON OXYGEN VIA NASAL CANNUAL AT 6 LITERS/MINUTE. SATURATIONS INCREASED TO 91%. PATIENT HAS TAKEN LEVAQUIN 500MG PO X 10 DAYS, DOXYCYCLINE 100MG BID X 10 DAYS, HAS HAD MULTIPLE ROCEPHIN AND STEROID INJECTIONS, AND HAS BEEN USING NEBULIZER TREATMENTS SINCE FEBRUARY 12, 2022. AUSCULTATION OF LUNGS REVEALED SCATTERED WHEEZING AND RHONCHI THROUGHOUT. SHE ADMITS TO HAVING A PRODUCTIVE COUGH AND INCREASED SHORTNESS OF BREATH. ON ARRIVAL TO THE HOSPITAL, HER VITALS WERE 98.6-100-42-99% (OXY MASK AT 6 LPM)-118/74. LABS WERE OBTAINED. WBC 11.4, RBC 3.85, HGB 12.1, HCT 34.9, PLT COUNT 295, SODIUM 135, POTASSIUM 3.4, CHLORIDE 96, CARBON DIOXIDE 31.9, BUN 18, CREATININE 0.80, GLUCOSE 104, CALCIUM 8.4, MAGNESIUM 1.8, AST 19, ALT 22, ALK PHOS 58, TOTAL PROTEIN 6.5, ALBUMIN 3.0. COVID, INFLUENZA, AND RSV NEGATIVE. A RESPIRATORY VIRAL PANEL WAS SET UP. BLOOD AND SPUTUM CULTURES WERE ALSO SET UP. ABG REVEALED: PH 7.510, PC02 40, P02 135, HC03 31.9, 02 SAT 99, BASE EXCESS 8.2, A-A GRADIENT 72, FI02 36.0. A CHEST XRAY WAS OBTAINED AND REVEALED: Bilateral airspace opacities concerning for pneumonia. Recommend follow-up to resolution. 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 Replacement - Family History Family Medical History: Cancer - Social History Does patient currently use any type of tobacco product: No Have you used tobacco products in the last 12 months: No Type of Tobacco Use: None Does any household member use tobacco: No Alcohol Use: None Drug Use: None - Medications Home Medications: codeine Allergy (Verified 01/22/17 18:33) lisinopril Adverse Reaction (Verified 01/22/17 18:34) CONTINUE taking the following medications amlodipine 5 mg tablet 5 mg PO QDAY 03/13/22 [History] budesonide 0.25 mg/2 mL suspension for nebulization 0.25 mg inhalation BID 03/13/22 [History] desloratadine 5 mg tablet 1 tab PO QDAY 03/13/22 [History] ergocalciferol (vitamin D2) 1,250 mcg (50,000 unit) capsule 1,250 mcg PO QWEEK 03/13/22 [History] escitalopram oxalate 5 mg tablet 5 mg PO QDAY 03/13/22 [History] exemestane 25 mg tablet 25 mg PO QDAY 03/13/22 [History] fluticasone propionate 50 mcg/actuation nasal spray,suspension 2 spray intranasal BID 03/13/22 [History] losartan 50 mg tablet 50 mg PO QDAY 03/13/22 [History] mycophenolate mofetil 500 mg tablet 500 mg PO BID 03/13/22 [History] pantoprazole 40 mg tablet,delayed release 4 mg PO QDAY 03/13/22 [History] prednisone 10 mg tablet 30 mg PO DAILY 03/13/22 [History] promethazine-DM 6.25 mg-15 mg/5 mL oral syrup 10 ml PO Q4-6H PRN 03/13/22 [History] - Physical Exam Vital Signs: Temperature 98.3 F Pulse Rate [Bilateral Radial] 87 Pulse Rate 87 Respiratory Rate 34 Blood Pressure [Right Arm] 101/60 Blood Pressure [Left Arm] 109/51 Blood Pressure 114/55 O2 Sat by Pulse Oximetry 99 - Allergies Allergies/Adverse Reactions: Allergies Allergy/AdvReac Type Severity Reaction Status Date / Time codeine Allergy Verified 01/22/17 18:33 lisinopril AdvReac Verified 01/22/17 18:34
[2022-03-14] MEDS: MUCOMYST (RESPIRATORY USE ONLY) NEB SCH (17:01)
[2022-03-14] MEDS ORDERED: MAALOX or MYLANTA PO PRN (20:03)
[2022-03-14] MEDS ORDERED: MAALOX or MYLANTA ONE (20:08)
[2022-03-14] MEDS: RESTORIL CAP 15 MG PO PRN (20:45)
[2022-03-15] MEDS: XOPENEX 1.25 MG/3 ML NEBULE NEB SCH ×4 (00:01→17:28)
[2022-03-15 05:13] LABS: BASOPHILS # (AUTO) 0.1 X10^3/uL (0.0-0.1); BASOPHILS % (AUTO) 0.5 % (0.2-1.0); HEMATOCRIT 32.4 % (36.0-47.0); HEMOGLOBIN 11.6 g/dL (12.0-16.0); LYMPHOCYTES # (AUTO) 0.8 X10^3/uL (1.3-2.9); MEAN CORPUSCULAR HGB CONC 35.8 g/dL (33.0-35.0); MEAN CORPUSCULAR VOLUME 89.2 fL (80.0-100.0); MEAN PLATELET VOLUME 7.5 fL (7.4-11.0); MONOCYTES # (AUTO) 0.6 x10^3/uL (0.3-0.8); MONOCYTES % (AUTO) 4.6 % (0.0-13.0); NEUTROPHILS # (AUTO) 11.9 x10^3/uL (2.2-4.8); NEUTROPHILS % (AUTO) 88.9 % (42.0-75.0); RED BLOOD COUNT 3.63 X10^6/uL (3.5-5.4); RED CELL DISTRIBUTION WIDTH 14.7 % (11.6-16.5); WHITE BLOOD COUNT 13.4 X10^3/uL (3.6-10.0)
[2022-03-15 05:23] LABS: ALANINE AMINOTRANSFERASE 21 Units/L (12-78); ALBUMIN 2.5 g/dL (3.4-5.0); ALKALINE PHOSPHATASE 58 Units/L (46-116); ASPARTATE AMINO TRANSFERASE 16 Units/L (15-37); BLOOD UREA NITROGEN 15 mg/dL (7-18); CALCIUM 8.1 mg/dL (8.5-10.1); CARBON DIOXIDE 33.1 mmol/L (21-32); CHLORIDE 97 mmol/L (98-107); COR CA(FOR HYPOALB) 9.3 mg/dL (8.5-10.1); COR NA(FOR HYPERGLY) 135 mmol/L (136-145); CREATININE 0.78 mg/dL (0.55-1.02); MAGNESIUM 2.3 mg/dL (2.0-2.9); SODIUM 134 mmol/L (136-145); TOTAL PROTEIN 5.9 g/dL (6.4-8.2); eGFR NON BLACK RACES > 60 (>60)
[2022-03-15] MEDS: SOLU-Medrol 40 MG VIAL IVP SCH ×3 (05:33→21:05)
[2022-03-15] MEDS: K-DUR TAB 20 MEQ PO PRN (05:51)
[2022-03-15] MEDS: MUCOMYST (RESPIRATORY USE ONLY) NEB SCH ×2 (06:00→17:28)
--- NOTE | 2022-03-15 07:22 | RAD ---
HISTORYShortness of breathSTUDYSingle-view [id number]/2023FINDINGSThe trachea is midline. The cardiac silhouette is enlarged with a tortuous thoracic aorta. Worsening hazy airspace opacification of the left midlung zone and left lower lobe consistent with particular nodular and underlying ground-glass opacifications. Worsening interstitial lung changes the right colten thorax are observed. Findings may be on the basis of atypical pneumonia and continued follow-up will be needed. The bony thorax is unremarkable.IMPRESSIONWorsening airspace opacification left colten thorax with increased interstitial changes right chest. Continued follow-up will be needed.Electronically signed by: WASHINGTON WU (Mar 15, 2022 07:20:50)
[2022-03-15] MEDS ORDERED: LEXAPRO ONE (08:41)
[2022-03-15] MEDS: ROBITUSSIN DM PO SCH ×4 (08:46→21:06)
[2022-03-15] MEDS: PROTONIX TAB 40 MG PO SCH (08:46)
[2022-03-15] MEDS: LEVAQUIN PREMIX IV 750 MG 750 MG/150 ML BAG IV SCH (08:46)
[2022-03-15] MEDS: VSL#3 PO SCH (08:46)
[2022-03-15] MEDS: LEXAPRO PO SCH (08:46)
[2022-03-15] MEDS: LOVENOX INJ 40 MG SYR SC SCH (08:47)
[2022-03-15] MEDS: CLARITIN PO SCH (08:47)
[2022-03-15] MEDS: CHLORTHALIDONE PO SCH (08:47)
[2022-03-15] MEDS: PROPAFENONE 325 MG PO SCH ×2 (08:49→21:06)
[2022-03-15] MEDS: [UNRECOGNIZED DRUG - OTHER] PO SCH ×2 (08:49→21:06)
[2022-03-15] MEDS: EXEMESTANE 25 MG PO SCH (08:49)
[2022-03-15] MEDS: PATIENT'S HOME MEDICATION (Mycophenolate Mofetil 500 mg tablet) PO SCH ×2 (08:50→21:06)
[2022-03-15] MEDS: FLONASE NASAL SPRAY ENOSTRIL SCH ×2 (08:51→21:04)
[2022-03-15] MEDS: PULMICORT NEB TX 0.5 MG NEB SCH ×2 (09:00→20:45)
[2022-03-15] MEDS: NS 1/2 1,000 ML IV 1,000 ML IV SCH ×3 (09:14→21:07)
[2022-03-15] MEDS ORDERED: NS 1/2 1,000 ML IV 1,000 ML IV ONE (14:50)
[2022-03-15] MEDS: RESTORIL CAP 15 MG PO PRN (21:06)
[2022-03-16] MEDS: XOPENEX 1.25 MG/3 ML NEBULE NEB SCH ×2 (00:03→05:29)
[2022-03-16] MEDS ORDERED: NS 1/2 1,000 ML IV 1,000 ML IV ONE (04:09)
[2022-03-16] MEDS: NS 1/2 1,000 ML IV 1,000 ML IV SCH (04:38)
[2022-03-16] MEDS: MUCOMYST (RESPIRATORY USE ONLY) NEB SCH (05:29)
[2022-03-16 05:31] LABS: BASOPHILS # (AUTO) 0.1 X10^3/uL (0.0-0.1); MEAN CORPUSCULAR HGB CONC 35.7 g/dL (33.0-35.0); MEAN PLATELET VOLUME 7.2 fL (7.4-11.0)
[2022-03-16 05:34] LABS: BASOPHILS % (AUTO) 0.5 % (0.2-1.0); HEMATOCRIT 32.5 % (36.0-47.0); HEMOGLOBIN 11.6 g/dL (12.0-16.0); LYMPHOCYTES # (AUTO) 0.7 X10^3/uL (1.3-2.9); LYMPHOCYTES % (AUTO) 6.8 % (21.0-51.0); MEAN CORPUSCULAR VOLUME 89.6 fL (80.0-100.0); MONOCYTES # (AUTO) 0.5 x10^3/uL (0.3-0.8); MONOCYTES % (AUTO) 4.2 % (0.0-13.0); NEUTROPHILS # (AUTO) 9.7 x10^3/uL (2.2-4.8); NEUTROPHILS % (AUTO) 88.5 % (42.0-75.0); RED BLOOD COUNT 3.63 X10^6/uL (3.5-5.4); RED CELL DISTRIBUTION WIDTH 14.7 % (11.6-16.5)
[2022-03-16 05:38] LABS: ALANINE AMINOTRANSFERASE 21 Units/L (12-78); ALBUMIN 2.4 g/dL (3.4-5.0); ALKALINE PHOSPHATASE 56 Units/L (46-116); ASPARTATE AMINO TRANSFERASE 16 Units/L (15-37); BLOOD UREA NITROGEN 15 mg/dL (7-18); CALCIUM 7.7 mg/dL (8.5-10.1); CARBON DIOXIDE 36.2 mmol/L (21-32); CHLORIDE 95 mmol/L (98-107); COR NA(FOR HYPERGLY) 133 mmol/L (136-145); CREATININE 0.78 mg/dL (0.55-1.02); SODIUM 132 mmol/L (136-145); TOTAL PROTEIN 5.4 g/dL (6.4-8.2); eGFR NON BLACK RACES > 60 (>60)
[2022-03-16] MEDS: SOLU-Medrol 40 MG VIAL IVP SCH (06:00)
--- NOTE | 2022-03-16 07:35 | RAD ---
HISTORYPneumoniaSTUDYSingle-view [id number]/2023FINDINGSThe trachea is midline. The cardiac silhouette is enlarged with a tortuous thoracic aorta. Persistent interstitial changes with focal airspace opacity throughout the left lower lobe remaining.. The bony thorax is unremarkable.IMPRESSIONDiffuse airspace opacities of the left colten thorax consistent with multifocal pneumonia. The findings are essentially stable compared to prior examination.Electronically signed by: WASHINGTON WU (Mar 16, 2022 07:34:04)
[2022-03-16] MEDS: PULMICORT NEB TX 0.5 MG NEB SCH (08:00)
[2022-03-16] MEDS ORDERED: LEXAPRO ONE (09:09)
[2022-03-16] MEDS: LEVAQUIN PREMIX IV 750 MG 750 MG/150 ML BAG IV SCH (09:11)
[2022-03-16] MEDS: LEXAPRO PO SCH (09:12)
[2022-03-16] MEDS: VSL#3 PO SCH (09:12)
[2022-03-16] MEDS: ROBITUSSIN DM PO SCH (09:12)
[2022-03-16] MEDS: LOVENOX INJ 40 MG SYR SC SCH (09:12)
[2022-03-16] MEDS: CLARITIN PO SCH (09:13)
[2022-03-16] MEDS: CHLORTHALIDONE PO SCH (09:13)
[2022-03-16] MEDS: PROTONIX TAB 40 MG PO SCH (09:13)
[2022-03-16] MEDS: [UNRECOGNIZED DRUG - OTHER] PO SCH (09:14)
[2022-03-16] MEDS: PROPAFENONE 325 MG PO SCH (09:14)
[2022-03-16] MEDS: EXEMESTANE 25 MG PO SCH (09:15)
[2022-03-16] MEDS: PATIENT'S HOME MEDICATION (Mycophenolate Mofetil 500 mg tablet) PO SCH (09:15)
[2022-03-16] MEDS: FLONASE NASAL SPRAY ENOSTRIL SCH (10:39)
[2022-03-16 11:29] VITALS: BP 142/63
== END 2022-03-16 11:20 | disposition home or self-care (01) | DRG 194 ==
LOC: ICU 12:55
PROVIDERS: ADMIT Internal Medicine; ATTEND Internal Medicine
DX: R06.02 Shortness of breath; Z99.81 Dependence on supplemental oxygen; J44.1 Chronic obstructive pulmonary disease with (acute) exacerbation; I10 Essential (primary) hypertension; B37.89 Other sites of candidiasis; Z20.822 Contact with and (suspected) exposure to COVID-19; R42 Dizziness and giddiness; J18.0 Bronchopneumonia, unspecified organism; I48.91 Unspecified atrial fibrillation